=== PATIENT | male | born 1980 | race Two or more races ===

== ENCOUNTER 2018-01-20 21:21 | Emergency (ER) | payer SELFPAY ==
--- NOTE | 2018-01-20 21:32 | NUR ---
PT BBRA [id number] FOR +ETOH. PT STEPPED OFF OF THE EMS GURNEY AND WALKED OUT WITH STEADY GAIT NOTED. PT WAS NOTED TO BE AAOX4. PT REFUSED TO BE TRIAGED AND LEFT BEFORE TRIAGE.
== END 2018-01-20 21:35 | disposition left against medical advice (07) ==
LOC: ER 21:23
DX: Z53.21 Procedure and treatment not carried out due to patient leaving prior to being seen by health care provider (principal)